=== PATIENT | female | born 2000 | race Caucasian/White ===

== ENCOUNTER 2018-02-07 16:27 | Emergency (ER) | payer OTHER ==
[2018-02-07 16:39] VITALS: BP 134/71; PULSE 78; RESP 16; TEMP 99.2; O2SAT 100
[2018-02-07] MEDS ORDERED: cefTRIAXone (Rocephin) 250 mg Inj IM STA (18:47)
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
== END 2018-02-07 19:27 | disposition home or self-care (01) ==
LOC: C.ER 16:27
DX: T76.21XA Adult sexual abuse, suspected, initial encounter (principal)
CPT/HCPCS: 96372; 99285; J0696